=== PATIENT | female | born 1935 | race African-American/Black ===

== ENCOUNTER 2022-07-19 08:48 | Outpatient (CLI) | payer OTHER, SELFPAY | END 2022-07-19 08:49 | disposition home or self-care (01) | LOC: ANHBWCAUD 08:49 | DX: H90.3 Sensorineural hearing loss, bilateral (principal); G62.89 Other specified polyneuropathies; G89.29 Other chronic pain; M54.50 Low back pain, unspecified | CPT/HCPCS: 92557; 92567 ==